=== PATIENT | male | born 1950 | race Caucasian/White ===

== ENCOUNTER 2021-06-09 20:15 | Emergency (ER) | payer SELFPAY ==
[~2021-06-09] VITALS: Ht 185.4 cm; Wt 107.7 kg
[2021-06-09 22:11] VITALS: BP 137/85
[2021-06-09] MEDS ORDERED: ketorolac trometh. 30mg/ml inj. IM ONE (22:20)
--- NOTE | 2021-06-09 22:40 | NUR ---
pt placed in a walking boot and knows how to use crutches.
== END 2021-06-09 22:41 | disposition home or self-care (01) ==
LOC: ER 20:16
DX: M79.671 Pain in right foot (principal)
CPT/HCPCS: 73630; 96372; 99284; J1885